=== PATIENT | female | born 1975 | race African-American/Black ===

== ENCOUNTER 2017-11-09 03:33 | Emergency (ER) | payer OTHER ==
[2017-11-09] MEDS ORDERED: ASPIRIN PO ONE (06:47)
[2017-11-09 07:15] LABS: Basophils % (Auto) 0.4 % (0.0-1.8); Eosinophils % (Auto) 0.7 % (0.0-4.3); Hematocrit 41.1 % (30.3-42.9); Hemoglobin 14.1 gm/dl (10.1-14.3); Lymphocytes # (Auto) 1.1 K/mm3 (1.2-5.4); Lymphocytes % (Auto) 19.8 % (13.4-35.0); Mean Corpuscular HGB Conc 34 % (30-34); Mean Corpuscular Hemoglobin 32 pg (28-32); Mean Corpuscular Volume 94 fl (79-97); Monocytes # (Auto) 0.3 K/mm3 (0.0-0.8); Monocytes % (Auto) 5.5 % (0.0-7.3); Platelet Count 232 K/mm3 (140-440); Red Blood Count 4.38 M/mm3 (3.65-5.03); Red Cell Distribution Width 12.7 % (13.2-15.2)
[2017-11-09 07:29] LABS: BUN/Creatinine Ratio 26; Blood Urea Nitrogen 13 mg/dL (7-17); Calcium 9.3 mg/dL (8.4-10.2); Hemolysis Index 15
--- NOTE | 2017-11-09 08:17 | Cat Scan Report ---
FINAL REPORT EXAM: CT HEAD/BRAIN WO CON HISTORY: headache TECHNIQUE: CT imaging acquired through the head without intravenous contrast. Transaxial reformations are provided. PRIORS: None. FINDINGS: The ventricles, cisterns and sulci are within normal limits. Anatomic septum pellucidum variant noted. No intraparenchymal or extra-axial mass, hemorrhage, or mass effect. Rodriguez and white-matter differentiation is within normal limits. Basal ganglia calcification noted. Normal spherical shape of the globes. Paranasal sinuses and mastoid air cells are clear. No skull or facial fracture visualized. IMPRESSION: No acute intracranial abnormality.
--- NOTE | 2017-11-09 11:13 | XRay Report ---
AP CHEST: HISTORY: chest pain AP view of the chest demonstrates a normal mediastinal and cardiac contour with clear lungs and normal bony and soft tissue structures. IMPRESSION: Unremarkable AP chest.
[2017-11-09] MEDS ORDERED: ZOFRAN IV ONE (11:22)
[2017-11-09] MEDS ORDERED: NACL 0.9% 1000 ML 1,000 ML IV ONE (11:22)
[2017-11-09] MEDS ORDERED: BENADRYL IV ONE (11:44)
[2017-11-09] MEDS ORDERED: TORADOL IV ONE (11:44)
[2017-11-09] MEDS ORDERED: REGLAN IV ONE (11:44)
[2017-11-09] MEDS ORDERED: NORCO 5/325 PO ONE (11:54)
--- NOTE | 2017-11-09 11:59 | Emergency Department Report ---
HPI - General Chief Complaint: Chest Pain Time Seen by Provider: 11/09/17 10:52 - HPI HPI: The patient is a 41-year-old female presents for a number of complaints including headache, chest pain, abdominal pain. The patient reports headache for the past 3 months, constant, mild in severity, aching in quality. She also reports chest pain and upper abdominal pain for the past one day, crampy in quality, mild in severity, exacerbated with vomiting. She has experienced multiple episodes of nausea without emesis. The patient denies fever, trauma to the head, chest or abdomen, coughing, wheezing, dyspnea, syncope, hemoptysis , diarrhea, blood in the stool, dysuria, vaginal discharge, unilateral leg swelling, oral contraceptive use, recent immobilization, history of DVT or PE, hx of recent cancer. ED Past Medical Hx - Past Medical History Previous Medical History?: No - Surgical History Past Surgical History?: Yes Additional Surgical History: hysterectomy - Social History Smoking Status: Never Smoker Substance Use Type: None - Medications Home Medications: Home Medications Medication Instructions Recorded Confirmed Last Taken Type Butalb/Acetaminophen/Caffeine 1 - 2 cap PO Q6HR PRN #14 cap 11/09/17 Unknown Rx [Fioricet 50-300-40 mg CAP] Ibuprofen [Motrin] 800 mg PO Q8HR PRN #15 tablet 11/09/17 Unknown Rx Ondansetron [Zofran TAB] 4 mg PO Q8HR PRN #20 tablet 11/09/17 Unknown Rx ED Review of Systems ROS: Stated complaint: WEAKNESS Other details as noted in HPI Constitutional: denies: fever ENT: denies: throat or neck pain Respiratory: denies: cough, shortness of breath Cardiovascular: reports: chest pain Endocrine: denies unexplained weight loss or gain Gastrointestinal: reports abdominal pain, nausea Genitourinary: denies: dysuria Musculoskeletal: denies: leg swelling Skin: denies: rash Neurological: reports headache Hematological/Lymphatic: denies: easy bleeding or easy bruising Psych: denies sadness or hopelessness Physical Exam - Physical Exam Vital Signs: Vital Signs 11/09/17 05:48 Temperature 97.4 F L Pulse Rate 94 H Respiratory 20 Rate Blood Pressure 112/80 O2 Sat by Pulse 99 Oximetry Physical Exam: General: well-nourished, well-developed, no acute distress Head: Normocephalic, atraumatic Eyes: normal sclera ENT: Mucous membranes are pink and moist Neck: trachea midline, neck supple, No neck stiffness, no cervical adenopathy Respiratory: Breath sounds equal bilaterally, no wheezing, rales, or rhonchi Cardio: S1 and S2 present, no murmurs, rubs, gallops, capillary refill is brisk Abdomen: Normoactive bowel sounds, soft abdomen, suprapubic and left lower quadrant tenderness to palpation present, no rigidity, no guarding or rebound tenderness Musc: No pitting edema Skin: No rash Neuro: alert oriented x4, normal cognition, speech normal, PERRL, EOM intact, no facial drooping, no uvula or tongue deviation on protrusion, no deficit with rotation of neck or shoulder shrug, no obvious gross motor deficit in the upper or lower extremities with flexion or extension at the shoulder, elbow, wrist, hip, knee, or ankle bilaterally, no obvious gross sensation deficit to crude touch or 2 pt discrimination, 2+ symmetric reflexes on DTR testing, no coordination deficit with [id number] or qmlr-bb-favs testing, Babinski downgoing, romberg negative, patient able to to ambulate without abnormal gait Psych: Normal affect ED Course Vital Signs 11/09/17 05:48 Temperature 97.4 F L Pulse Rate 94 H Respiratory 20 Rate Blood Pressure 112/80 O2 Sat by Pulse 99 Oximetry ED Medical Decision Making - Lab Data Result diagrams: 11/09/17 07:03 11/09/17 07:03 - Medical Decision Making The patient was seen and examined by myself. The patient is placed on a respiratory care assistant and continuous pulse ox. On initial evaluation, the patient was found to be in no distress. EKG was negative for findings suggestive of acute cardiac infarct. Labs and imaging are obtained. Chest x-ray is negative for pneumothorax, focal consolidation, pulmonary vascular congestion, pleural effusion, or other obvious acute cardiopulmonary disease process. Lab results were non-concerning including nml levels of 2 sets of troponin, WBC, hemoglobin , hematocrit, electrolytes, renal function and LFTs, lipase, and negative test. CT scan the head is negative for acute intracranial disease process. The patient given IV Reglan, Benadryl, and IV Toradol for treatment of her pain and nausea. The patient was reevaluated and reported that their symptoms were markedly improved. As the patient has a HARJIT risk score less than 2, and a well 's score less than 2, the patient is at low risk of ACS or pulmonary emboli etiology of their symptoms. The patient is stable for discharge with outpatient follow-up. The patient is given follow-up and return instructions. The patient expressed understanding and agreed with the plan. The patient is discharged in stable condition. Critical care attestation.: If time is entered above; I have spent that time in minutes in the direct care of this critically ill patient, excluding procedure time. ED Disposition Clinical Impression: Acute chest pain, Acute non intractable tension-type headache, Dehydration, mild, Abdominal pain, acute, epigastric Disposition: TO HOME OR SELFCARE Is pt being admited?: No Does the pt Need Aspirin: No Condition: Stable Instructions: Chest Pain (ED), Costochondritis (ED), Migraine Headache (ED) Referrals: PRIMARY MD DARIUS [Primary Care Provider] - 3-5 Days CATRINA MARTINEZ MD [Staff Physician] - 3-5 Days CHUCHO KELLY MD [Referring] - 3-5 Days ABBIE LINARES MD [Staff Physician] - 3-5 Days [facility] [Provider Group] - 3-5 Days Time of Disposition: 12:01
[2017-11-09] MEDS ORDERED: ATIVAN ONE (12:13)
[2017-11-09 12:24] LABS: Alanine Aminotransferase 14 units/L (7-56); Albumin 4.7 g/dL (3.9-5); Lipase 22 units/L (13-60)
[2017-11-09 12:29] LABS: Bilirubin,Direct < 0.2 mg/dL (0-0.2)
[2017-11-09 12:40] LABS: Bacteria,Urine 1+ /HPF (Negative); Bilirubin,Urine NEG (Negative); Blood,Urine NEG (Negative); Color,Urine Yellow (Yellow); Hyaline Casts,Urine 3 /LPF; Mucus,Urine FEW /HPF; Protein,Urine <15 mg/dL mg/dL (Negative); Urobilinogen,Urine < 2.0 mg/dL (<2.0)
[2017-11-09] MEDS ORDERED: ATIVAN IV ONE (12:47)
[2017-11-09 14:24] VITALS: BP 108/61
== END 2017-11-09 15:25 | disposition home or self-care (01) ==
LOC: EDBD 03:33 → ED 03:33
DX: G44.209 Tension-type headache, unspecified, not intractable (principal); R07.89 Other chest pain; E86.0 Dehydration; R10.13 Epigastric pain; Z90.710 Acquired absence of both cervix and uterus
CPT/HCPCS: 36415; 70450; 71045; 80048; 80074; 81001; 83690; 84484; 84703; 85025; 93005; 93010; 96361; 96374; 96375; 99285; J1200; J1885; J2060; J2405; J2765; J7030